=== PATIENT | male | born 1945 | race Caucasian/White ===

== ENCOUNTER 2017-01-25 06:57 | Day surgery (SDC) | payer OTHER ==
[~2017-01-25] VITALS: Ht 195.6 cm; Wt 120.5 kg
[2017-01-25] VITALS (7 sets, daily range): BP systolic 102–120; BP diastolic 65–90; PULSE 68–82; RESP 16–20; TEMP 98–98.3; O2SAT 93–94
[2017-01-25] MEDS ORDERED: SODIUM CHLORIDE 0.9% 1000 ML IV SCH (07:00)
[2017-01-25] MEDS ORDERED: APIX2.5T PO (07:18)
[2017-01-25] MEDS ORDERED: ceFAZolin 2 GM PREMIX 50 ML - implanted port/tunneled catheter insertion IV SCH (07:30)
[2017-01-25] MEDS ORDERED: CHLORHEXIDINE GLUCONATE 2 % 1 PACK (2 CLOTHS) TOPICAL SCH (07:30)
[2017-01-25] MEDS ORDERED: POVIDONE IODINE 5% (ANTISEPSIS KIT) 4 APPLICATIONS EACH NARE SCH (07:30)
[2017-01-25] MEDS ORDERED: VANCOMYCIN 1000 MG/NS 250 ML - implanted port/tunneled catheter IV SCH ×2 (07:30)
[2017-01-25] MEDS ORDERED: MIDAZOLAM HCL 5 MG/5 ML VIAL ONE (08:49)
[2017-01-25] MEDS ORDERED: fentaNYL CITRATE 250 MCG/5 ML AMP ONE (08:49)
[2017-01-25] MEDS ORDERED: LIDOCAINE 1%/EPINEPHrine 1:100,000 SOLN 30 ML VIAL ONE (08:59)
--- NOTE | 2017-01-25 09:58 | PD.RAD ---
Post Procedure Progress Note Pre Procedure Diagnosis: (1) Lymphoma Post Procedure Diagnosis: (1) Lymphoma Procedure Date: Jan 25, 2017 Supervising Radiologist: Rajan Montoya Proceduralist/Assist: Qi Dobson, RT(R)(CV), Anum Canseco RT(R) Estimated blood loss: <5 ml Anesthesia: Conscious Sedation Plan of Activity Patient to Unit: ROPU Patient Condition: Good Additional Comments: TIP at [facility] See PACS Report for procedural detail/treatment Rajan Montoya MD Jan 25, 2017 09:58
[2017-01-25] MEDS ORDERED: SODIUM CHLORIDE 0.9% FLUSH 10 ML FLUSH IVF PRN (10:00)
--- NOTE | 2017-01-25 10:17 | RADRPT ---
EXAM DATE/TIME: 01/25/2017 09:07 [facility] COMPARISON: No previous studies available for comparison. INDICATIONS : Patient with history of lymphoma in need of Fldvi-o-Bocz placement. MEDICAL HISTORY : DVT, Lymphoma, Renal cancer, Squamous cell cancer left arm, Multiple left anterior rib fractures SURGICAL HISTORY : Right knee replacement, Tonsillectomy, Left radical nephrectomy, Kidney bx, Colonoscopy, Lymph node b x, Port placement ENCOUNTER: Initial ACUITY: >1 year PAIN SCORE: 0/10 FLUORO TIME: 0.2 minutes IMAGE SERIES: 0 SEDATION TIME: 45 ACCESS: Right internal jugular vein SEDATION: 1.) 3.5 mg midazolam (Versed) IV 2.) 175 mcg fentanyl (Sublimaze) IV Prophylactic antibiotics were administered with appropriate pre-procedure timing. Vancomycin within 2 hours of procedure, Ancef (or alternative) within 1 hour of procedure. DEVICE: 1. 8 [place] single lumen Bard Power Port PROCEDURE : 1. Continuous pulse oximetry and EKG monitoring. 2. Intravenous conscious sedation. 3. Ultrasound guidance for venous access. 4. Fluoroscopic guided implantable central venous port placement. The patient was placed supine. The neck was prepped in sterile fashion. Full sterile technique was u sed, including cap, mask, sterile gloves and gown, and a large sterile sheet. Hand hygiene and 2% ch lorhexidine Betadine was utilized per protocol for cutaneous antisepsis with appropriate dry time for site. The skin and subcutaneous tissues were infiltrated with local anesthetic solution. Under direct ultrasound guidance, central venous access was accomplished in the targeted vessel. The ultrasound images depicting access guidance were stored and saved to PACS for permanent record. A s ubcutaneous pocket was created using blunt dissection. The port was introduced to the pocket. The c atheter tubing was fed through a subcutaneous tunnel to the venotomy site. The catheter tubing was c ut to a suitable length and then was introduced through a valved Peel-Away sheath and positioned with catheter tubing tip at the cavo-atrial junction level. The pocket incision was closed with subcutic ular Vicryl suture. Steri-Strips were applied. The port was flushed and locked with heparin solutio n per protocol. Sterile dressing was applied to the site. The patient tolerated the procedure well. Conscious sedation was performed with the prescribed dosages and duration as above in the presence of an independent trained radiology nurse to assist in the monitoring of the patient. EKG and oximetry remained stable throughout the procedure. The patient tolerated the procedure well and there were no complications. The patient was sent to post anesthesia recovery in stable condition. CONCLUSION: Uncomplicated ultrasound and fluoroscopic guided implanted central venous port catheter placement as described in detail above. An 8 Naur[place] Power port was placed. Rajan Montoya MD on January 25, 2017 at 10:15 Board Certified Radiologist. This report was verified electronically.
== END 2017-01-25 12:10 | disposition home or self-care (01) ==
LOC: HROP 06:57 → HRIP 07:05 → HROP 12:10
PROVIDERS: ATTEND Internal Medicine Hematology & Oncology
DX: C85.90 Non-Hodgkin lymphoma, unspecified, unspecified site (principal)
CPT/HCPCS: 36561; 76937; 77001; 99152; 99153; C1788; J0690; J1642; J2250; J3010; J3370; J7030; J7050

== ENCOUNTER → 2017-06-08 | Outpatient (CLI) | payer OTHER ==
[~2017-06-08] MED LIST: APIX2.5T PO
[2017-06-08 10:16] LABS: AUTOMATED NEUTROPHIL # 0.5 TH/MM3 (1.8-7.7); BASOPHIL % 0.3 % (0.0-2.0); EOSINOPHIL % 2.5 % (0.0-4.0); HEMATOCRIT 35.7 % (39.0-51.0); HEMO FLAGS AUTO DIFF; LYMPH % 44.8 % (9.0-44.0); LYMPHOCYTE # 0.8 TH/MM3 (1.0-4.8); MEAN CELL VOLUME 96.8 FL (80.0-100.0); MEAN CORPUSCULAR HEMOGLOBIN 33.8 PG (27.0-34.0); MEAN CORPUSCULAR HGB CONC 34.9 % (32.0-36.0); MONO % 22.9 % (0.0-8.0); NEUT % 29.5 % (16.0-70.0); PLATELET COUNT 23 TH/MM3 (150-450); RED BLOOD COUNT 3.69 MIL/MM3 (4.50-5.90); RED CELL DISTRIBUTION WIDTH 13.2 % (11.6-17.2); WHITE BLOOD COUNT 1.8 TH/MM3 (4.0-11.0)
[2017-06-08 10:43] LABS: BANDS 9 % (0-6); EOSINOPHILS 1 % (0-4); METAMYELOCYTES 2 % (0-1); NEUTROPHIL # MANUAL DIFF 0.3 TH/MM3 (1.8-7.7); POLYS (SEG NEUTROPHILS) 6 % (16-70); WBC DIFF SAMPLE 100
[2017-06-08 10:44] LABS: PLATELET ESTIMATE SMEAR LOW (NORMAL); PLATELET MORPHOLOGY NORMAL (NORMAL); SCAN/DIFF FINAL DIFF MANUAL
== END ==
LOC: HLAB 09:24
PROVIDERS: ATTEND Internal Medicine Hematology & Oncology
DX: C85.90 Non-Hodgkin lymphoma, unspecified, unspecified site (principal)
CPT/HCPCS: 85007; 85027

== ENCOUNTER 2017-12-21 00:20 | Inpatient (IN) | payer OTHER, MEDICARE ==
[2017-12-21] VITALS (10 sets, daily range): BP systolic 91–124; BP diastolic 56–80; PULSE 75–121; RESP 16–18; TEMP 97.5–101.7; O2SAT 94–98
[~2017-12-21] VITALS: Ht 190.5 cm; Wt 97.0 kg
--- NOTE | 2017-12-21 01:17 | RADRPT ---
EXAM DATE/TIME: 12/21/2017 00:48 [facility] COMPARISON: No previous studies available for comparison. INDICATIONS : Shortness of breath MEDICAL HISTORY : DVT, Lymphoma, Renal cancer, Squamous cell cancer left arm SURGICAL HISTORY : None. ENCOUNTER: Initial ACUITY: 1 day PAIN SCORE: 0/10 LOCATION: Bilateral chest FINDINGS: Right chest port catheter is present in good position. There is no evidence of focal infiltrate or pl eural effusion. Cardiac contours are satisfactory for technique and projection. CONCLUSION: No acute disease Chaitanya York MD on December 21, 2017 at 1:15 Board Certified Radiologist. This report was verified electronically.
[2017-12-21] MEDS ORDERED: ACYC800T PO (01:27)
[2017-12-21] MEDS ORDERED: POTA10TA2 PO (01:27)
[2017-12-21] MEDS ORDERED: CYCL1CAP4 PO (01:27)
[2017-12-21] MEDS ORDERED: SENN8.6T36 PO (01:27)
[2017-12-21] MEDS ORDERED: RANI300T PO (01:27)
[2017-12-21 01:31] LABS: HEMATOCRIT 27.6 % (39.0-51.0); HEMOGLOBIN 9.5 GM/DL (13.0-17.0); MEAN CELL VOLUME 97.9 FL (80.0-100.0); MEAN CORPUSCULAR HEMOGLOBIN 33.6 PG (27.0-34.0); MEAN CORPUSCULAR HGB CONC 34.3 % (32.0-36.0); PLATELET COUNT 38 TH/MM3 (150-450); RED BLOOD COUNT 2.82 MIL/MM3 (4.50-5.90); RED CELL DISTRIBUTION WIDTH 24.4 % (11.6-17.2); WHITE BLOOD COUNT 3.4 TH/MM3 (4.0-11.0)
[2017-12-21] MEDS ORDERED: FLUT50SP EACH NARE (01:31)
[2017-12-21] MEDS ORDERED: LACT10SO PO (01:31)
[2017-12-21] MEDS ORDERED: CETI5CHW CHEW (01:31)
[2017-12-21 01:54] LABS: ALBUMIN 3.5 GM/DL (3.4-5.0); ALT (GPT) 27 U/L (12-78); AST (GOT) 22 U/L (15-37); BLOOD UREA NITROGEN 10 MG/DL (7-18); CALCIUM 8.6 MG/DL (8.5-10.1); CHLORIDE 102 MEQ/L (98-107); CREATININE 1.64 MG/DL (0.60-1.30); GLOMERULAR FILTRATION RATE 41 ML/MIN (>89); GLUCOSE,RANDOM 134 MG/DL (74-106); SODIUM (NA) 137 MEQ/L (136-145)
[2017-12-21 01:56] LABS: ALKALINE PHOSPHATASE 58 U/L (45-117); TOTAL BILIRUBIN ADULT 0.5 MG/DL (0.2-1.0); TOTAL PROTEIN 6.5 GM/DL (6.4-8.2)
[2017-12-21 02:01] LABS: BANDS 27 % (0-6); BASOPHILS 1 % (0-2); CORRECTED NUCLEATED RBC 1 /100 WBC (0-0); LYMPHOCYTES 17 % (9-44); METAMYELOCYTES 2 % (0-1); MONOCYTES 20 % (0-8); NEUTROPHIL # MANUAL DIFF 1.9 TH/MM3 (1.8-7.7); NUCLEATED RED BLOOD CELL 1 (0-0); POLYS (SEG NEUTROPHILS) 28 % (16-70)
[2017-12-21 02:02] LABS: OVALOCYTES 1+ (NORMAL)
--- NOTE | 2017-12-21 02:12 | PD ---
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 Hall and I called Dr. Hernandez who was at covering the ice team at [facility] and he is admitted PFS Past Medical History Cancer: Yes (Lymphoma, kidney ca) Cardiovascular Problems: Yes (DVT RLE 5 yrs ago) Chemotherapy: Yes Diabetes: No Endocrine: No Genitourinary: No Hepatitis: No Hiatal Hernia: No Immune Disorder: No Medical other: Yes (Tumor removed L1, L3) Musculoskeletal: Yes (Right TKR) Neurologic: No Psychiatric: No Reproductive: No Respiratory: No Immunizations Current: Yes Thyroid Disease: No Past Surgical History Abdominal Surgery: Yes AICD: No Cardiac Surgery: No Ear Surgery: No Endocrine Surgery: Yes (KIDNEY REMOVAL) Eye Surgery: No Genitourinary Surgery: No Gynecologic Surgery: No Joint Replacement: Yes (Right TKR) Oral Surgery: No Pacemaker: No Thoracic Surgery: No Other Surgery: Yes Social History Alcohol Use: Yes Tobacco Use: No Substance Use: No Allergies-Medications (Allergen,Severity, Reaction): Coded Allergies: naproxen (Unverified Allergy, Intermediate, Hives, 12/21/17) Reported Meds & Prescriptions Reported Meds & Active Scripts Active Reported Lactulose Liq (Lactulose) 10 Gm/15 Ml Soln 45 Ml PO Q6H PRN Fluticasone Nasal [place] 50 Mcg/Act Naspr 50 Mcg EACH NARE BID 50 mcg/spray Cetirizine (Cetirizine HCl) 5 Mg Chew 5 Mg CHEW DAILY Senna-Tabs (Sennosides) 8.6 Mg Tab 17.2 Mg PO DAILY Ranitidine (Ranitidine HCl) 300 Mg Tab 300 Mg PO HS Potassium Chloride ER (Potassium Chloride) 10 Meq Tab 10 Meq PO TID Cyclophosphamide 50 Mg Cap 100 Mg PO DAILY Acyclovir 800 Mg Tab 800 Mg PO BID Eliquis (Apixaban) 2.5 Mg Tab 2.5 Mg PO BID Physical Exam Narrative GENERAL: seems mildly confused and difficulty remebering events leading up to today Rectal temp 101.7 SKIN: Warm and dry. HEAD: Atraumatic. Normocephalic. EYES: Pupils equal and round. No scleral icterus. No injection or drainage. ENT: No nasal bleeding or discharge. Mucous membranes pink and moist. NECK: Trachea midline. No JVD. CARDIOVASCULAR: Regular rate and rhythm. RESPIRATORY: No accessory muscle use. Clear to auscultation. Breath sounds equal bilaterally. GASTROINTESTINAL: Abdomen soft, non-tender, nondistended. Hepatic and splenic margins not palpable. MUSCULOSKELETAL: Extremities without clubbing, cyanosis, or edema. No obvious deformities. NEUROLOGICAL: Awake and alert. No obvious cranial nerve deficits. Motor grossly within normal limits. Five out of 5 muscle strength in the arms and legs. Normal speech. PSYCHIATRIC: seems mildly forgetful possible mild demetia or side effect of recent t-cell transplant Data Data Last Documented VS Vital Signs Date Time Temp Pulse Resp B/P (MAP) Pulse Ox O2 Delivery O2 Flow Rate FiO2 12/21/17 00:46 120 98 Room Air 12/21/17 00:41 101.7 16 124/80 (95) Orders Orders Complete Blood Count With Diff (12/21/17 00:46) Comprehensive Metabolic Panel (12/21/17 00:46) Creatine Kinase (Cpk) (12/21/17 00:46) Lipase (12/21/17 00:46) Urinalysis - C+S If Indicated (12/21/17 00:46) Chest, Single Ap (12/21/17 00:46) Lactic Acid (12/21/17 00:47) Blood Culture (12/21/17 00:47) Cefepime Inj (Maxipime Inj) (12/21/17 02:15) Consult Hematology (12/21/17 ) Influenzae A/B Antigen (12/21/17 02:10) Admit Order (Ed Use Only) (12/21/17 02:19) Labs Laboratory Tests Test 12/21/17 01:00 12/21/17 02:15 White Blood Count 3.4 TH/MM3 Red Blood Count 2.82 MIL/MM3 Hemoglobin 9.5 GM/DL Hematocrit 27.6 % Mean Corpuscular Volume 97.9 FL Mean Corpuscular Hemoglobin 33.6 PG Mean Corpuscular Hemoglobin Concent 34.3 % Red Cell Distribution Width 24.4 % Platelet Count 38 TH/MM3 Mean Platelet Volume 9.0 FL CBC Comment AUTO DIFF Differential Total Cells Counted 100 Neutrophils % (Manual) 28 % Band Neutrophils % 27 % Lymphocytes % 17 % Monocytes % 20 % Eosinophils % 5 % Basophils % 1 % Neutrophils # (Manual) 1.9 TH/MM3 Metamyelocytes 2 % Nucleated Red Blood Cells 1 /100 WBC Differential Comment FINAL DIFF MANUAL Platelet Estimate LOW Platelet Morphology Comment NORMAL Ovalocytes 1+ Blood Urea Nitrogen 10 MG/DL Creatinine 1.64 MG/DL Random Glucose 134 MG/DL Total Protein 6.5 GM/DL Albumin 3.5 GM/DL Calcium Level 8.6 MG/DL Alkaline Phosphatase 58 U/L Aspartate Amino Transf (AST/SGOT) 22 U/L Alanine Aminotransferase (ALT/SGPT) 27 U/L Total Bilirubin 0.5 MG/DL Sodium Level 137 MEQ/L Potassium Level 3.8 MEQ/L Chloride Level 102 MEQ/L Carbon Dioxide Level 23.0 MEQ/L Anion Gap 12 MEQ/L Estimat Glomerular Filtration Rate 41 ML/MIN Lactic Acid Level 2.1 mmol/L Total Creatine Kinase 59 U/L Lipase 144 U/L Urine Color Light Urine Turbidity CLEAR Urine pH 7.0 Urine Specific [place] 1.004 Urine Protein NEG mg/dL Urine Glucose (UA) NEG mg/dL Urine Ketones NEG mg/dL Urine Occult Blood TRACE Urine Nitrite NEG Urine Bilirubin NEG Urine Urobilinogen 0.2 MG/DL Urine Leukocyte Esterase NEG Urine RBC LESS THAN 1 /hpf Urine WBC 1 /hpf Urine Squamous Epithelial Cells 2 /hpf Urine Bacteria RARE /hpf Microscopic Urinalysis Comment CULT NOT INDICATED MDM Medical Decision Making Medical Screen Exam Complete: Yes Emergency Medical Condition: Yes Medical Record Reviewed: Yes Differential Diagnosis neutropenic fever, immune deficiency fever , medication reaction , viral illneess witgh fever , bacterial source fever UTI or PNA or septicemia Narrative Course pt has rectal temp of 101 .7 and is given vanco 1 gr and cefipime 2gr , discussed case with Dr Hall ONC who knows the patient and I called [facility] and spoke to sales administration specialist MD , they both agree with aggressive antibioitic treatment and admit contact isolation reverse Physician Communication Physician Communication Dr Hall and Hepsis attending Mazal Diagnosis Primary Impression: Neutropenic fever Additional Impression: Lymphoma Admitting Information Admitting Physician Requests: Admit Scripts Levofloxacin (Levaquin) 750 Mg Tablet 750 MG PO DAILY for Infection, #7 TAB 0 Refills Prov: Lucy Gallegos MD 12/23/17 Augustus Tay MD December 21, 2017 02:12
[2017-12-21] MEDS ORDERED: CEFEPIME INJ 2,000 MG in SODIUM CHLORIDE 0.9% INJ 100 ML IV ONE (02:15)
[2017-12-21] MEDS ORDERED: VANCOMYCIN INJ 1,000 MG in SODIUM CHLOR 0.9% 250 ML INJ 250 ML IV ONE (02:15)
[2017-12-21] MEDS ORDERED: SENNOSIDES 8.6 MG TAB PO PRN (02:30)
[2017-12-21] MEDS ORDERED: MAGNESIUM HYDROXIDE SUSP 30 ML CUP PO PRN (02:30)
[2017-12-21] MEDS ORDERED: ACETAMINOPHEN 325 MG TAB PO PRN (02:30)
[2017-12-21] MEDS ORDERED: ACETAMINOPHEN/HYDROcodone 325 MG/5 MG TAB PO PRN (02:30)
[2017-12-21] MEDS ORDERED: SODIUM CHLORIDE 0.9% FLUSH 10 ML FLUSH IV FLUSH PRN (02:30)
[2017-12-21] MEDS ORDERED: ONDANSETRON HCL 4 MG/2 ML VIAL IVP PRN (02:30)
[2017-12-21] MEDS ORDERED: LACTULOSE SYRUP 20 GM/30 ML CUP PO PRN (02:30)
[2017-12-21] MEDS ORDERED: Vancomycin Consult Pharmacy 1 EA OTHER SCH (02:30)
[2017-12-21] MEDS ORDERED: BISACODYL 10 MG SUPP RECTAL PRN (02:30)
[2017-12-21] MEDS ORDERED: MORPHINE SULFATE 4 MG/ML INJ IV PRN (02:45)
[2017-12-21] MEDS ORDERED: VANCOMYCIN INJ 2,500 MG in SODIUM CHLORID 0.9% 500 ML INJ 500 ML IV ONE (02:45)
[2017-12-21 03:05] LABS: BACTERIA, URINE RARE /hpf; SQUAMOUS EPITHELIAL CELL URINE 2 /hpf (0-5)
[2017-12-21 03:07] LABS: BILIRUBIN, URINE NEG (NEG); BLOOD, URINE TRACE (NEG); GLUCOSE,URINE NEG (NEG); KETONE, URINE NEG (NEG); NITRITE,URINE NEG (NEG); URINE COLOR Light (YELLW/STRAW); URINE LEUKOCYTE ESTERASE NEG (NEG)
--- NOTE | 2017-12-21 03:47 | HHI.HP ---
HPI Service [facility] Primary Care Physician Non-Staff Admission Diagnosis Neutropenic fever 101.7 Diagnoses: (1) Sepsis Diagnosis: Principal (2) Neutropenic fever Diagnosis: Principal (3) Lymphoma Diagnosis: Principal (4) Thrombocytopenia Diagnosis: [place] Travel History International Travel<30 Days: No Contact w/Intl Traveler <30 Da: No Traveled to Known Affected Are: No History of Present Illness This is a 72-year-old male with a PMH of Large B Cell Lymphoma, h/o DVT and h/o Renal Cell CA s/p Left Nephrectomy who was brought to the ER by EMS secondary to weakness and near syncope. at bedside providing history, states he recently underwent CAR T-cell treatment at [facility]-(also follows w/ Dr. Hall locally), was admitted for approx 20 days, states he tolerated the treatment fairly well except for intermittent fever, but they resolved spontaneously. states he was discharged today after CT/PET Scan and receiving Neupogen for "low blood counts". states that on their drive back home pt had sudden intense rigors/chills, she took his temp when they got home which was 98- 99. Pt had gotten up to go to the bathroom and had intense weakness w/ near syncope, she was unable to get him up at which time she called EMS. On arrival , pt w/ rectal Temp 101.7, HR 121, BP 124/80, O2 sat 98% on RA. WBC 3.4, previously 4.0 on 10/28/2017. Hemoglobin 9.5, platelets 38, bandemia of 27%. Chemistry essentially at baseline, creatinine 1.64, previously 1.67 on 2017. Lactic Acid 2.1. UA negative for UTI. CXR with no acute findings. ER physician contacted Dr. Hernandez at [facility] and Dr. Hall. S/p Blood Cultures, Vanc/Cefepime in ER. Review of Systems Except as stated in HPI: all other systems reviewed are Neg ROS: 14 point review of systems otherwise negative. Past Family Social History Past Medical History PMH: Large B Cell Lymphoma, h/o DVT and h/o Renal Cell CA s/p Left Nephrectomy Past Surgical History PAST SURGICAL HISTORY: Left Nephrectomy, Right Total Knee Replacement Allergies: Coded Allergies: naproxen (Unverified Allergy, Intermediate, Hives, 12/21/17) Family History PAST FAMILY HISTORY: Reviewed. No h/o DM or CAD Social History PAST SOCIAL HISTORY: Occasional alcohol. Negative for tobacco or drugs. Physical Exam Vital Signs Vital Signs Date Time Temp Pulse Resp B/P (MAP) Pulse Ox O2 Delivery O2 Flow Rate FiO2 12/21/17 00:46 120 98 Room Air 12/21/17 00:41 101.7 121 16 124/80 (95) 98 Physical Exam PE: GENERAL: Pleasant elderly white male in no acute distress. at bedside HEENT: PERRLA, EOMI. No scleral icterus or conjunctival pallor. No lid lag or facial droop. CARDIOVASCULAR: Regular rate and rhythm. No obvious murmurs to auscultation. No chest tenderness to palpation. Right chest port in place. RESPIRATORY: No obvious rhonchi or wheezing. Clear to auscultation. Breath sounds equal bilaterally. GASTROINTESTINAL: Abdomen soft, non-tender, nondistended. BS normal. MUSCULOSKELETAL: Extremities without clubbing, cyanosis, or edema. No obvious deformities. NEUROLOGICAL: Awake, alert and oriented x4. No focal neurologic deficits. Moving both upper and lower extremities spontaneously. Laboratory Laboratory Tests Test 12/21/17 01:00 12/21/17 02:15 White Blood Count 3.4 Red Blood Count 2.82 Hemoglobin 9.5 Hematocrit 27.6 Mean Corpuscular Volume 97.9 Mean Corpuscular Hemoglobin 33.6 Mean Corpuscular Hemoglobin Concent 34.3 Red Cell Distribution Width 24.4 Platelet Count 38 Mean Platelet Volume 9.0 CBC Comment AUTO DIFF Differential Total Cells Counted 100 Neutrophils % (Manual) 28 Band Neutrophils % 27 Lymphocytes % 17 Monocytes % 20 Eosinophils % 5 Basophils % 1 Neutrophils # (Manual) 1.9 Metamyelocytes 2 Nucleated Red Blood Cells 1 Differential Comment FINAL DIFF MANUAL Platelet Estimate LOW Platelet Morphology Comment NORMAL Ovalocytes 1+ Blood Urea Nitrogen 10 Creatinine 1.64 Random Glucose 134 Total Protein 6.5 Albumin 3.5 Calcium Level 8.6 Alkaline Phosphatase 58 Aspartate Amino Transf (AST/SGOT) 22 Alanine Aminotransferase (ALT/SGPT) 27 Total Bilirubin 0.5 Sodium Level 137 Potassium Level 3.8 Chloride Level 102 Carbon Dioxide Level 23.0 Anion Gap 12 Estimat Glomerular Filtration Rate 41 Lactic Acid Level 2.1 Total Creatine Kinase 59 Lipase 144 Urine Color Light Urine Turbidity CLEAR Urine pH 7.0 Urine Specific [place] 1.004 Urine Protein NEG Urine Glucose (UA) NEG Urine Ketones NEG Urine Occult Blood TRACE Urine Nitrite NEG Urine Bilirubin NEG Urine Urobilinogen 0.2 Urine Leukocyte Esterase NEG Urine RBC LESS THAN 1 Urine WBC 1 Urine Squamous Epithelial Cells 2 Urine Bacteria RARE Microscopic Urinalysis Comment CULT NOT INDICATED Date/Time Source Procedure Growth Status 12/21/17 01:00 Blood Peripheral Aerobic Blood Culture Pending Received 12/21/17 01:00 Blood Peripheral Anaerobic Blood Culture Pending Received 12/21/17 02:15 Nasal Aspirate Influenza Types A,B Antigen (NATA) - Final NEGATIVE FOR FLU A AND B ANTIGEN.... Complete Result Diagram: 12/21/179912/21/1799 Caprini VTE Risk Assessment Caprini VTE Risk Assessment: No/Low Risk (score <= 1) Caprini Risk Assessment Model Point Value = 1 Point Value = 2 Point Value = 3 Point Value = 5 Age 41-60 Minor surgery BMI > 25 kg/m2 Swollen legs Varicose veins or History of unexplained or recurrent spontaneous Oral contraceptives or hormone replacement Sepsis (< 1 month) Serious lung disease, including pneumonia (< 1 month) Abnormal pulmonary function Acute myocardial infarction Congestive heart failure (< 1 month) History of inflammatory bowel disease Medical patient at bed rest Age 61-74 Arthroscopic surgery Major open surgery (> 45 min) Laparoscopic surgery (> 45 min) Malignancy Confined to bed (> 72 hours) Immobilizing plaster cast Central venous access Age >= 75 History of VTE Family history of VTE Factor V Leiden Prothrombin [id number] Lupus anticoagulant Anticardiolipin antibodies Elevated serum homocysteine Heparin-induced thrombocytopenia Other congenital or acquired thrombophilia Stroke (< 1 month) Elective arthroplasty Hip, pelvis, or leg fracture Acute spinal cord injury (< 1 month) Prophylaxis Regimen Total Risk Factor Score Risk Level Prophylaxis Regimen 0-1 Low Early ambulation 2 Moderate Order ONE of the following: *Sequential Compression Device (SCD) *Heparin 5000 units SQ BID 3-4 Higher Order ONE of the following medications: *Heparin 5000 units SQ TID *Enoxaparin/Lovenox 40 mg SQ daily (WT < 150 kg, CrCl > 30 mL/min) *Enoxaparin/Lovenox 30 mg SQ daily (WT < 150 kg, CrCl > 10-29 mL/min) *Enoxaparin/Lovenox 30 mg SQ BID (WT < 150 kg, CrCl > 30 mL/min) AND/OR *Sequential Compression Device (SCD) 5 or more Highest Order ONE of the following medications: *Heparin 5000 units SQ TID (Preferred with Epidurals) *Enoxaparin/Lovenox 40 mg SQ daily (WT < 150 kg, CrCl > 30 mL/min) *Enoxaparin/Lovenox 30 mg SQ daily (WT < 150 kg, CrCl > 10-29 mL/min) *Enoxaparin/Lovenox 30 mg SQ BID (WT < 150 kg, CrCl > 30 mL/min) AND *Sequential Compression Device (SCD) Assessment and Plan Problem List: (1) Sepsis ICD Code: A41.9 - Sepsis, unspecified organism (2) Neutropenic fever ICD Code: D70.9 - Neutropenia, unspecified; R50.81 - Fever presenting with conditions classified elsewhere (3) Lymphoma ICD Code: C85.90 - Non-Hodgkin lymphoma, unspecified, unspecified site (4) Thrombocytopenia ICD Code: D69.6 - Thrombocytopenia, unspecified Assessment and Plan A/P: 1. Sepsis: Temp 101.7, HR 120's, WBC 3.4, significant bandemia, Source-Unclear , +immunocompromised, U/a negative for UTI, CXR w/ no acute findings, images reviewed by me. S/p Blood Cultures, Vanc/Cefepime, follow up cultures, continue IV Abx. IVF 2. Neutropenic Fever: WBC 3.4, s/p Neupogen at [facility] today prior to discharge, continue w/ IV Abx, Neutropenic Precautions. Follow up cultures as above. 3. Lymphoma: Large B-Cell Lymphoma, s/p CAR T-cell treatment at [facility], following w/ Dr. Hall locally, will consult for further evaluation/ recommendations. 4. Thrombocytopenia: Platelets 38, previously 34 from outpatient labs per , no active bleeding noted, monitor closely, repeat labs in am. 5. DVT Prophylaxis: Pharmacologic contraindication secondary to thrombocytopenia 6. Social work for d/c planning as needed. 7. Case discussed w/ ER physician at length, labs/records/imaging reviewed by me. Physician Certification 2 Midnight Certification Type: Admission for Inpatient Services Order for Inpatient Services The services are ordered in accordance with Medicare regulations or non- Medicare payer requirements, as applicable. In the case of services not specified as inpatient-only, they are appropriately provided as inpatient services in accordance with the 2-midnight benchmark. Estimated LOS (days): 2 days is the estimated time the patient will need to remain in the hospital, assuming treatment plan goals are met and no additional complications. Post-Hospital Plan: Not yet determined Breanna Mcdaniel MD December 21, 2017 03:47
[2017-12-21] MEDS: SODIUM CHLOR 0.9% 1000 ML INJ 1,000 ML IV SCH ×2 (03:58→17:30)
[2017-12-21] MEDS: DOCUSATE SODIUM 50 MG/SENNA 8.6 MG TAB PO SCH ×2 (11:10→21:00)
[2017-12-21] MEDS: ACYCLOVIR 800 MG TAB PO SCH ×2 (11:10→21:50)
--- NOTE | 2017-12-21 12:09 | MB ---
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 PATIENT PROFILE: The patient is a 72-year-old white male. He is . He has lived in [place] since 06/2014. This is his third marriage. He has no biologic children. He is retired. He did bridge construction and senior project architect. He stopped smoking 33 years ago and had smoked 2-1/2 packs of cigarettes per day for 15 years. Alcohol intake in the past has been minimal. When he was well, he enjoyed golf and going to the gym. HISTORY OF PRESENT ILLNESS: The patient is a 72-year-old male whose history dates back to 2003, when he developed a large cell lymphoma and was treated with R-CHOP chemotherapy and entered a remission. He relapsed in 2004 with a low grade lymphoma and received multiple treatments and did well for a number of years. He developed large cell lymphoma for the second time, documented in 06/2017, felt to be a transformation of his low grade lymphoma. He received chemotherapy following this with carboplatin, ifosfamide and RN DIALYSIS-16. This was not successful. I referred him to the [facility] for CAR T-cell treatment. He was given a CAR T-cell infusion 4 weeks ago. His treatment was for the most part uneventful. He did not have a cytokine release phenomenon. Yesterday, he was at the [facility] and had a CAT scan and PET scan performed and returned home for the first time after being in [place] for the past month. On returning home, he developed global weakness and slid down to the floor. He had a 101 temperature and his called 911 and brought him to the emergency room. When he arrived at the emergency room, his temperature was 101.7, pulse was 121, respiratory rate 16, blood pressure 124/80 and O2 saturation was 98%. I was contacted that evening. His CBC- hemoglobin 9.5,;white count 2400; and platelets 38,000. He had 28% neutrophils, 27% bands, 17% lymphocytes, 20% monocytes, 5% eosinophils, 2 metamyelocytes and 1 nucleated red cell. A chest x-ray shows a right-sided chest port-catheter in good position. There are no infiltrates. He has been started on antibiotics and was given cefepime 1000 mg IV q.12 hours and his acyclovir 800 mg p.o. b.i.d. was continued. He is feeling better this morning. He has no fever. He received one injection of \ Vancomyin PAST SURGICAL HISTORY: 1. Right knee replacement. 2. Squamous cell carcinoma, left arm. 3. Tonsillectomy. 4. Left radical nephrectomy in 2013 for a renal cell cancer. 5. Colonoscopy in 2011. 6. Biopsy of lymph node in the right inguinal area in 2003, revealing diffuse large cell lymphoma. 7. Port placement in 2003. 8. Biopsy of axillary lymph node showing large cell lymphoma. PAST MEDICAL HISTORY: 1. Both large and small cell lymphoma. 2. Four weeks ago he received an infusion of CAR T-cells. 3. History of deep vein thrombosis right leg in 2004, occurring during chemotherapy and second DVT in 02/2014. MEDICATIONS PRIOR TO ADMISSION: 1. Eliquis 2.5 mg twice a day if the platelets are greater than 50,000. 2. Acyclovir 800 p.o. b.i.d. 3. Potassium 10 mEq once a day. 4. Zantac 300 mg a day. 5. Senna S. 6. Zyrtec. 7. Lactulose. ALLERGIES: NAPROXEN. FAMILY HISTORY: Noncontributory. REVIEW OF SYSTEMS: HEENT: No change in vision. Hearing slightly decreased this past week. CARDIOVASCULAR: No chest pain or palpitations. RESPIRATORY: Several days ago he had mild shortness of breath, went to the clinic at [facility], was given IV fluids and a Neupogen injection. He is better now. GASTROINTESTINAL: There has been a 40 pound weight loss over the past 6 months with diminished appetite. GENITOURINARY: No dysuria or frequency. MUSCULOSKELETAL: Lower back pain, chronic. NEUROLOGIC: General weakness during the past several days, exacerbated by the fever. SKIN: Normal. PSYCHIATRIC: Normal. PHYSICAL EXAMINATION: GENERAL: Reveals a gentleman who appears tired, but not acutely ill. VITAL SIGNS: His current temperature is 98.7, pulse 90, respiratory rate 18, blood pressure 105/65, O2 saturation 94%. HEENT: Head is normocephalic. Sclerae and conjunctivae are normal. Oropharynx unremarkable. LYMPHATICS: No cervical, supraclavicular, axillary or inguinal adenopathy. HEART: Regular rate and rhythm. LUNGS: Clear. ABDOMEN: Soft. No hepatosplenomegaly or masses. EXTREMITIES: No edema. MUSCULOSKELETAL: No bone pain. NEUROLOGIC: No weakness. Cognition and affect normal. SKIN: Unremarkable. The patient has catheter right upper chest area. ASSESSMENT AND PLAN: 1. Fever. For the time being, we must assume that this is related to an infection. He is immune suppressed, although his neutrophil count is adequate at 1900. Plan: Would continue cefepime. Await blood cultures. The [facility] has indicated that if the neutrophil count is less than 750, the recommendation is to give him Neupogen 480 units. 2. Large cell lymphoma. On exam, he appears to be in remission. He had a CAT scan and a PET scan done at [facility] yesterday and the patient and will obtain the results next week. Currently, would continue IV antibiotics and hopefully cultures will be negative and he will be able to go home in several days. Would also continue the oral acyclovir. Will check CBC and platelet count daily in case he needs Neupogen as his neutrophil count may continue to fall due due to his previous CAR T-cell infusion as one can have prolonged cytopenias. MD DELFIN Garay/EDENILSON , 11:32 AM , 12:08 PM [id number]
--- NOTE | 2017-12-21 13:51 | EKG ---
Date Performed: 12/21/2017 Time Performed: 00:35:50 PTAGE: 72 years EKG: SINUS TACHYCARDIA ABNORMAL RHYTHM ECG PREVIOUS TRACING : 06/28/2017 12.40 Since the previous tracing, no significant change noted DOCTOR: Leonidas Perales Interpretating Date/Time 12/21/2017 13:50:43
[2017-12-21] MEDS: SODIUM CHLORIDE 0.9% FLUSH 10 ML FLUSH IV FLUSH SCH ×2 (14:55→21:50)
[2017-12-21] MEDS: CEFEPIME INJ 1,000 MG in SODIUM CHLORIDE 0.9% INJ 100 ML IV SCH ×2 (14:55→23:53)
[2017-12-22] VITALS (10 sets, daily range): BP systolic 95–116; BP diastolic 60–74; PULSE 72–98; RESP 16–20; TEMP 97.8–98.7; O2SAT 94–98
[2017-12-22] MEDS: SODIUM CHLOR 0.9% 1000 ML INJ 1,000 ML IV SCH ×2 (03:43→18:25)
[2017-12-22 06:20] LABS: HEMATOCRIT 23.4 % (39.0-51.0); HEMOGLOBIN 7.9 GM/DL (13.0-17.0); MEAN CELL VOLUME 98.8 FL (80.0-100.0); MEAN CORPUSCULAR HEMOGLOBIN 33.5 PG (27.0-34.0); MEAN CORPUSCULAR HGB CONC 33.9 % (32.0-36.0); MEAN PLATELET VOLUME 8.8 FL (7.0-11.0); PLATELET COUNT 26 TH/MM3 (150-450); RED BLOOD COUNT 2.36 MIL/MM3 (4.50-5.90); RED CELL DISTRIBUTION WIDTH 25.4 % (11.6-17.2); WHITE BLOOD COUNT 1.7 TH/MM3 (4.0-11.0)
[2017-12-22 06:50] LABS: ALBUMIN 2.9 GM/DL (3.4-5.0); ALKALINE PHOSPHATASE 45 U/L (45-117); ALT (GPT) 22 U/L (12-78); AST (GOT) 16 U/L (15-37); BICARBONATE 23.5 MEQ/L (21.0-32.0); BLOOD UREA NITROGEN 10 MG/DL (7-18); CALCIUM 8.3 MG/DL (8.5-10.1); CHLORIDE 110 MEQ/L (98-107); GLOMERULAR FILTRATION RATE 54 ML/MIN (>89); GLUCOSE,RANDOM 88 MG/DL (74-106); RANDOM VANCOMYCIN 11.3 COMMENT; SODIUM (NA) 142 MEQ/L (136-145); TOTAL BILIRUBIN ADULT 0.3 MG/DL (0.2-1.0); TOTAL PROTEIN 5.5 GM/DL (6.4-8.2)
[2017-12-22 08:10] LABS: BANDS 20 % (0-6); BASOPHILS 1 % (0-2); DOHLE BODIES PRESENT (NONE SEEN); LYMPHOCYTES 26 % (9-44); METAMYELOCYTES 8 % (0-1); MONOCYTES 16 % (0-8); MYELOCYTES 2 % (0-0); NEUTROPHIL # MANUAL DIFF 0.9 TH/MM3 (1.8-7.7); POLYS (SEG NEUTROPHILS) 22 % (16-70)
[2017-12-22 08:11] LABS: OVALOCYTES 1+ (NORMAL)
--- NOTE | 2017-12-22 08:18 | HHI.PR ---
Subjective Remarks He is in bed at this time feels a little bit better. He wants to go home as soon as possible. No nausea vomiting, constipation. No fever overnight or chills. Objective Vitals Vital Signs Date Time Temp Pulse Resp B/P (MAP) Pulse Ox O2 Delivery O2 Flow Rate FiO2 12/22/17 04:00 98.6 78 20 98/65 (76) 94 12/22/17 04:00 72 12/22/17 00:00 98.3 79 20 102/66 (78) 95 12/22/17 00:00 83 12/21/17 20:00 79 12/21/17 20:00 98.9 75 18 95/67 (76) 94 12/21/17 16:20 75 12/21/17 16:00 97.5 80 18 93/56 (68) 97 12/21/17 14:00 98.4 84 18 91/64 (73) 95 12/21/17 12:20 119 12/21/17 08:20 93 I/O 12/21/17 12/21/17 12/21/17 12/22/17 12/22/17 12/22/17 07:00 15:00 23:00 07:00 15:00 23:00 Intake Total 440 ml 1600 ml 240 ml Balance 440 ml 1600 ml 240 ml Intake Oral 240 ml 1500 ml 240 ml IV Total 200 ml 100 ml # Voids 1 4 4 Result Diagram: 12/22/17 0530 12/22/17 0530 Imaging Last Impressions Chest X-Ray 12/21/17 0046 Signed Impressions: Service Date/Time: Thursday, December 21, 2017 00:48 - CONCLUSION: No acute disease Chaitanya York MD Objective Remarks GENERAL: Pleasant elderly white male, chronically ill, in no acute distress. HEENT: PERRLA, EOMI. CARDIOVASCULAR: Regular rate and rhythm. No obvious murmurs to auscultation. No chest tenderness to palpation. Right chest port in place. RESPIRATORY: No obvious rhonchi or wheezing. Clear to auscultation. Breath sounds equal bilaterally. GASTROINTESTINAL: Abdomen soft, non-tender, nondistended. BS normal. MUSCULOSKELETAL: Extremities without clubbing, cyanosis, or edema. No obvious deformities. NEUROLOGICAL: Awake, alert and oriented x4. No focal neurologic deficits. Moving both upper and lower extremities spontaneously. A/P Problem List: (1) Sepsis ICD Code: A41.9 - Sepsis, unspecified organism (2) Neutropenic fever ICD Code: D70.9 - Neutropenia, unspecified; R50.81 - Fever presenting with conditions classified elsewhere (3) Lymphoma ICD Code: C85.90 - Non-Hodgkin lymphoma, unspecified, unspecified site (4) Thrombocytopenia ICD Code: D69.6 - Thrombocytopenia, unspecified Assessment and Plan Sepsis on admission in immunocompromised patient with Temp 101.7, HR 120's, WBC 3.4, significant bandemia, Source-Unclear Patient is immunocompromised U/a negative for UTI CXR reviewed no acute findings, Monitor Blood Cultures Continue Vanc/Cefepime, follow up cultures, continue IV Abx. Neutropenic Fever: WBC 3.4 on admission, s/p Neupogen at [facility] today prior to discharge, continue w/ IV Abx, Neutropenic Precautions. Follow up cultures as above. Large B-Cell Lymphoma, s/p CAR T-cell treatment at [facility], following w/ Dr. Hall locally, will consult for further evaluation/recommendations. Thrombocytopenia: Platelets 38, previously 34 from outpatient labs per , no active bleeding noted, monitor closely, repeat labs in am. DVT Prophylaxis: Pharmacologic contraindication secondary to thrombocytopenia Case management consulted for d/c planning . Lucy Gallegos MD December 22, 2017 08:18
[2017-12-22] MEDS: ACYCLOVIR 800 MG TAB PO SCH ×2 (08:25→23:15)
[2017-12-22] MEDS: SODIUM CHLORIDE 0.9% FLUSH 10 ML FLUSH IV FLUSH SCH ×2 (08:25→23:16)
[2017-12-22] MEDS: DOCUSATE SODIUM 50 MG/SENNA 8.6 MG TAB PO SCH ×2 (08:25→23:15)
[2017-12-22] MEDS ORDERED: VANCOMYCIN INJ 2,000 MG in SODIUM CHLORID 0.9% 500 ML INJ 500 ML IV ONE (11:00)
--- NOTE | 2017-12-22 11:07 | PD.ONC.PN ---
Subjective Subjective Remarks Afebrile Patient reports he is anxious to go home Has been walking around his room to the bathroom with no complaints Objective Data Date Time Temp Pulse Resp B/P (MAP) Pulse Ox O2 Delivery O2 Flow Rate FiO2 12/22/17 04:00 98.6 78 20 98/65 (76) 94 12/22/17 04:00 72 12/22/17 00:00 98.3 79 20 102/66 (78) 95 12/22/17 00:00 83 12/21/17 20:00 79 12/21/17 20:00 98.9 75 18 95/67 (76) 94 12/21/17 16:20 75 12/21/17 16:00 97.5 80 18 93/56 (68) 97 12/21/17 14:00 98.4 84 18 91/64 (73) 95 12/21/17 12:20 119 12/22/17 12/22/17 12/22/17 07:00 15:00 23:00 Intake Total 240 ml Balance 240 ml Result Diagram: 12/22/17 0530 12/22/17 0530 Laboratory Results Laboratory Tests Test 12/22/17 05:30 White Blood Count 1.7 TH/MM3 Red Blood Count 2.36 MIL/MM3 Hemoglobin 7.9 GM/DL Hematocrit 23.4 % Mean Corpuscular Volume 98.8 FL Mean Corpuscular Hemoglobin 33.5 PG Mean Corpuscular Hemoglobin Concent 33.9 % Red Cell Distribution Width 25.4 % Platelet Count 26 TH/MM3 Mean Platelet Volume 8.8 FL CBC Comment AUTO DIFF Differential Total Cells Counted 100 Neutrophils % (Manual) 22 % Band Neutrophils % 20 % Lymphocytes % 26 % Monocytes % 16 % Eosinophils % 5 % Basophils % 1 % Neutrophils # (Manual) 0.9 TH/MM3 Metamyelocytes 8 % Myelocytes 2 % Differential Comment FINAL DIFF MANUAL Dohle Bodies PRESENT Platelet Estimate LOW Platelet Morphology Comment NORMAL Ovalocytes 1+ Blood Urea Nitrogen 10 MG/DL Creatinine 1.30 MG/DL Random Glucose 88 MG/DL Total Protein 5.5 GM/DL Albumin 2.9 GM/DL Calcium Level 8.3 MG/DL Alkaline Phosphatase 45 U/L Aspartate Amino Transf (AST/SGOT) 16 U/L Alanine Aminotransferase (ALT/SGPT) 22 U/L Total Bilirubin 0.3 MG/DL Sodium Level 142 MEQ/L Potassium Level 3.8 MEQ/L Chloride Level 110 MEQ/L Carbon Dioxide Level 23.5 MEQ/L Anion Gap 9 MEQ/L Estimat Glomerular Filtration Rate 54 ML/MIN Random Vancomycin Level 11.3 COMMENT Culture Results Microbiology Date/Time Source Procedure Growth Status 12/21/17 01:00 Blood Peripheral Aerobic Blood Culture Pending Received 12/21/17 01:00 Blood Peripheral Anaerobic Blood Culture Pending Received 12/21/17 00:55 Blood Peripheral Aerobic Blood Culture Pending Received 12/21/17 00:55 Blood Peripheral Anaerobic Blood Culture Pending Received 12/21/17 02:15 Nasal Aspirate Influenza Types A,B Antigen (NATA) - Final NEGATIVE FOR FLU A AND B ANTIGEN.... Complete Administered Medications Medications (Trade) Dose Ordered Sig/Guzman Route PRN Reason Start Time Stop Time Status Last Admin Dose Admin Cefepime HCl 1000 mg/Sodium Chloride 100 ml @ 200 mls/hr Q12H IV 12/21/17 12:00 12/21/17 23:53 Sodium Chloride 1,000 ml @ 100 mls/hr Q10H IV 12/21/17 02:19 12/22/17 03:43 Sodium Chloride (NS Flush) 2 ml BID IV FLUSH 12/21/17 09:00 12/22/17 08:25 Ondansetron HCl (Zofran Inj) 4 mg Q6H PRN IVP NAUSEA OR VOMITING 12/21/17 02:30 12/21/17 03:57 Senna/Docusate Sodium (Katherine-Colace) 1 tab BID PO 12/21/17 09:00 12/22/17 08:25 Acyclovir (Zovirax) 800 mg BID PO 12/21/17 09:00 12/22/17 08:25 Objective Remarks GENERAL: Older gentleman resting in bed in no obvious distress SKIN: Warm and dry. HEAD: Normocephalic. EYES: No injection or drainage. NECK: Supple, trachea midline. CARDIOVASCULAR: Regular rate and rhythm without murmurs. RESPIRATORY: Clear anteriorly. Breathing unlabored at rest. GASTROINTESTINAL: Abdomen soft, non-tender, nondistended. EXTREMITIES: No cyanosis, or edema. MUSCULOSKELETAL: Adequate muscle tone. NEUROLOGICAL: No obvious focal deficit. Awake, alert, and oriented x3. Assessment/Plan Assessment 72-year-old man who recently had CAR-T cell treatment admitted with fever Plan The patient remains afebrile. He is neutropenic today with a neutrophil count of 900 however we will hold off on the G-CSF support at this time as per [facility] this is not to be initiated until he falls less than 750. Continue to follow blood cultures. Attending Statement The exam, history, and the medical decision-making described in the above note were completed with the assistance of the mid-level provider. I reviewed and agree with the findings presented. I attest that I had a [id number] encounter with the patient on the same day, and personally performed and documented my assessment and findings in the medical record. feels well and would like to go home. no fever and cultures to date are negative. Will plan on discharge home tomorrow if afebrile and cultures remain negative. He has had a significant fall in the wbc, hemoglobin and platelets. if neutrophils are < or = to 750 will give neupogen 400 units subcut times one. No platelet transfusion unless 10,000 or less or bleeding. May need transfusion of packed cells. await am CBC plat in am. Leeanne Trevizo December 22, 2017 11:07 Justice Hall MD December 22, 2017 16:26
[2017-12-22] MEDS: CEFEPIME INJ 1,000 MG in SODIUM CHLORIDE 0.9% INJ 100 ML IV SCH ×2 (15:15→23:16)
[2017-12-23] VITALS: PULSE 74
[2017-12-23 04:13] VITALS: PULSE 99
[2017-12-23 05:14] VITALS: BP 101/72; PULSE 80; RESP 16; TEMP 97.7; O2SAT 95
[2017-12-23] MEDS: SODIUM CHLOR 0.9% 1000 ML INJ 1,000 ML IV SCH (05:14)
[2017-12-23 07:42] LABS: AUTOMATED NEUTROPHIL # 0.5 TH/MM3 (1.8-7.7); EOSINOPHIL # 0.1 TH/MM3 (0-0.4); EOSINOPHIL % 7.1 % (0.0-4.0); HEMATOCRIT 24.8 % (39.0-51.0); HEMOGLOBIN 8.5 GM/DL (13.0-17.0); LYMPH % 22.9 % (9.0-44.0); LYMPHOCYTE # 0.3 TH/MM3 (1.0-4.8); MEAN CELL VOLUME 98.7 FL (80.0-100.0); MEAN CORPUSCULAR HEMOGLOBIN 33.8 PG (27.0-34.0); MEAN CORPUSCULAR HGB CONC 34.2 % (32.0-36.0); MEAN PLATELET VOLUME 8.6 FL (7.0-11.0); MONOCYTE # 0.5 TH/MM3 (0-0.9); PLATELET COUNT 27 TH/MM3 (150-450); RED BLOOD COUNT 2.51 MIL/MM3 (4.50-5.90); RED CELL DISTRIBUTION WIDTH 24.8 % (11.6-17.2); WHITE BLOOD COUNT 1.4 TH/MM3 (4.0-11.0)
--- NOTE | 2017-12-23 08:20 | HHI.PR ---
Subjective Remarks Patient in nad. She feels much better and he wants to go home today. No fever chills. Has some cough white greenish sputum says this is at his baseline. Denies having any nausea vomiting no diarrhea or constipation. Objective Vitals Vital Signs Date Time Temp Pulse Resp B/P (MAP) Pulse Ox O2 Delivery O2 Flow Rate FiO2 12/23/17 05:14 97.7 80 16 101/72 (82) 95 12/23/17 04:13 99 12/23/17 00:00 74 12/22/17 23:14 98.7 98 16 116/74 (88) 94 12/22/17 20:00 80 12/22/17 18:20 98.3 82 18 102/60 (74) 98 12/22/17 16:58 81 12/22/17 12:30 97.8 79 18 106/65 (79) 97 12/22/17 12:20 84 12/22/17 08:20 80 I/O 12/22/17 12/22/17 12/22/17 12/23/17 12/23/17 12/23/17 07:00 15:00 23:00 07:00 15:00 23:00 Intake Total 240 ml 517 ml 2635 ml 680 ml Balance 240 ml 517 ml 2635 ml 680 ml Intake Oral 240 ml 1560 ml 480 ml IV Total 517 ml 1075 ml 200 ml # Voids 4 8 4 Result Diagram: 12/23/17 0714 12/22/17 0530 Imaging Last Impressions Chest X-Ray 12/21/17 0046 Signed Impressions: Service Date/Time: Thursday, December 21, 2017 00:48 - CONCLUSION: No acute disease Chaitanya York MD Objective Remarks GENERAL: Pleasant elderly white male, chronically ill, in no acute distress. HEENT: PERRLA, EOMI. CARDIOVASCULAR: Regular rate and rhythm. No obvious murmurs to auscultation. No chest tenderness to palpation. Right chest port in place. RESPIRATORY: No obvious rhonchi or wheezing. Clear to auscultation. Breath sounds equal bilaterally. GASTROINTESTINAL: Abdomen soft, non-tender, nondistended. BS normal. MUSCULOSKELETAL: Extremities without clubbing, cyanosis, or edema. No obvious deformities. NEUROLOGICAL: Awake, alert and oriented x4. No focal neurologic deficits. Moving both upper and lower extremities spontaneously. A/P Problem List: (1) Sepsis ICD Code: A41.9 - Sepsis, unspecified organism (2) Neutropenic fever ICD Code: D70.9 - Neutropenia, unspecified; R50.81 - Fever presenting with conditions classified elsewhere (3) Lymphoma ICD Code: C85.90 - Non-Hodgkin lymphoma, unspecified, unspecified site (4) Thrombocytopenia ICD Code: D69.6 - Thrombocytopenia, unspecified Assessment and Plan Sepsis on admission in immunocompromised patient with Temp 101.7, HR 120's, WBC 3.4, significant bandemia, Source-Unclear. Sepsis resolved. Patient is immunocompromised UA negative for UTI CXR reviewed no acute findings, Monitor Blood Cultures Continue Vanc/Cefepime, follow up cultures, continue IV Abx. Discussed withhem/ onc can give levaquin 750 mg po daily for 5-7 days at [place] Neutropenic Fever: WBC 3.4 on admission, s/p Neupogen at [facility] today prior to discharge, continue w/ IV Abx, Neutropenic Precautions. Follow up cultures as above. Large B-Cell Lymphoma, s/p CAR T-cell treatment at [facility], following w/ Dr. Hall locally, will consult for further evaluation/recommendations. Thrombocytopenia: Platelets 38, previously 34 from outpatient labs per , no active bleeding noted, monitor closely, repeat labs in am. Stable. DVT Prophylaxis: Pharmacologic contraindication secondary to thrombocytopenia Case management consulted for d/c planning . Lucy Gallegos MD December 23, 2017 08:20
--- NOTE | 2017-12-23 08:22 | HHI.DS ---
Discharge Summary Admission Date December 21, 2017 at 02:21 Discharge Date: December 23, 2017 Admitting Diagnosis Neutropenic fever 101.7 (1) Sepsis ICD Code: A41.9 - Sepsis, unspecified organism (2) Neutropenic fever ICD Code: D70.9 - Neutropenia, unspecified; R50.81 - Fever presenting with conditions classified elsewhere (3) Lymphoma ICD Code: C85.90 - Non-Hodgkin lymphoma, unspecified, unspecified site (4) Thrombocytopenia ICD Code: D69.6 - Thrombocytopenia, unspecified Procedures none Brief History - From Admission This is a 72-year-old male with a PMH of Large B Cell Lymphoma, h/o DVT and h/o Renal Cell CA s/p Left Nephrectomy who was brought to the ER by EMS secondary to weakness and near syncope. at bedside providing history, states he recently underwent CAR T-cell treatment at [facility]-(also follows w/ Dr. Hall locally), was admitted for approx 20 days, states he tolerated the treatment fairly well except for intermittent fever, but they resolved spontaneously. states he was discharged today after CT/PET Scan and receiving Neupogen for "low blood counts". states that on their drive back home pt had sudden intense rigors/chills, she took his temp when they got home which was 98- 99. Pt had gotten up to go to the bathroom and had intense weakness w/ near syncope, she was unable to get him up at which time she called EMS. On arrival , pt w/ rectal Temp 101.7, HR 121, BP 124/80, O2 sat 98% on RA. WBC 3.4, previously 4.0 on 10/28/2017. Hemoglobin 9.5, platelets 38, bandemia of 27%. Chemistry essentially at baseline, creatinine 1.64, previously 1.67 on 2017. Lactic Acid 2.1. UA negative for UTI. CXR with no acute findings. ER physician contacted Dr. Hernandez at [facility] and Dr. Hall. S/p Blood Cultures, Vanc/Cefepime in ER. CBC/BMP: 12/23/17 0714 12/22/17 0530 Significant Findings Laboratory Tests Test 12/21/17 01:00 12/21/17 02:15 12/22/17 05:30 12/23/17 07:14 White Blood Count 3.4 TH/MM3 (4.0-11.0) 1.7 TH/MM3 (4.0-11.0) 1.4 TH/MM3 (4.0-11.0) Red Blood Count 2.82 MIL/MM3 (4.50-5.90) 2.36 MIL/MM3 (4.50-5.90) 2.51 MIL/MM3 (4.50-5.90) Hemoglobin 9.5 GM/DL (13.0-17.0) 7.9 GM/DL (13.0-17.0) 8.5 GM/DL (13.0-17.0) Hematocrit 27.6 % (39.0-51.0) 23.4 % (39.0-51.0) 24.8 % (39.0-51.0) Red Cell Distribution Width 24.4 % (11.6-17.2) 25.4 % (11.6-17.2) 24.8 % (11.6-17.2) Platelet Count 38 TH/MM3 (150-450) 26 TH/MM3 (150-450) 27 TH/MM3 (150-450) Band Neutrophils % 27 % (0-6) 20 % (0-6) Monocytes % 20 % (0-8) 16 % (0-8) Eosinophils % 5 % (0-4) 5 % (0-4) Metamyelocytes 2 % (0-1) 8 % (0-1) Nucleated Red Blood Cells 1 /100 WBC (0-0) Platelet Estimate LOW (NORMAL) LOW (NORMAL) Ovalocytes 1+ (NORMAL) 1+ (NORMAL) Creatinine 1.64 MG/DL (0.60-1.30) Random Glucose 134 MG/DL (74-106) Estimat Glomerular Filtration Rate 41 ML/MIN (>89) 54 ML/MIN (>89) Lactic Acid Level 2.1 mmol/L (0.4-2.0) Urine Occult Blood TRACE (NEG) Urine Bacteria RARE /hpf (NONE) Neutrophils # (Manual) 0.9 TH/MM3 (1.8-7.7) Myelocytes 2 % (0-0) Dohle Bodies PRESENT (NONE SEEN) Total Protein 5.5 GM/DL (6.4-8.2) Albumin 2.9 GM/DL (3.4-5.0) Calcium Level 8.3 MG/DL (8.5-10.1) Chloride Level 110 MEQ/L (98-107) Monocytes (%) (Auto) 35.0 % (0.0-8.0) Eosinophils (%) (Auto) 7.1 % (0.0-4.0) Neutrophils # (Auto) 0.5 TH/MM3 (1.8-7.7) Lymphocytes # (Auto) 0.3 TH/MM3 (1.0-4.8) Imaging Last Impressions Chest X-Ray 12/21/17 0046 Signed Impressions: Service Date/Time: Saturday, December 21, 2017 00:48 - CONCLUSION: No acute disease Chaitanya York MD PE at Discharge GENERAL: Pleasant elderly white male, chronically ill, in no acute distress. HEENT: PERRLA, EOMI. CARDIOVASCULAR: Regular rate and rhythm. No obvious murmurs to auscultation. No chest tenderness to palpation. Right chest port in place. RESPIRATORY: No obvious rhonchi or wheezing. Clear to auscultation. Breath sounds equal bilaterally. GASTROINTESTINAL: Abdomen soft, non-tender, nondistended. BS normal. MUSCULOSKELETAL: Extremities without clubbing, cyanosis, or edema. No obvious deformities. NEUROLOGICAL: Awake, alert and oriented x4. No focal neurologic deficits. Moving both upper and lower extremities spontaneously. Hospital Course Sepsis on admission in immunocompromised patient with Temp 101.7, HR 120's, WBC 3.4, significant bandemia, Source-Unclear. Sepsis resolved. Patient is immunocompromised UA negative for UTI CXR reviewed no acute findings, Monitor Blood Cultures Continue Vanc/Cefepime, follow up cultures, continue IV Abx. Discussed withhem/ onc can give levaquin 750 mg po daily for 5-7 days at [place] Neutropenic Fever: WBC 3.4 on admission, s/p Neupogen at [facility] today prior to discharge, continue w/ IV Abx, Neutropenic Precautions. Follow up cultures as above. Large B-Cell Lymphoma, s/p CAR T-cell treatment at [facility], following w/ Dr. Hall locally, will consult for further evaluation/recommendations. Thrombocytopenia: Platelets 38, previously 34 from outpatient labs per , no active bleeding noted, monitor closely, repeat labs in am. Stable. DVT Prophylaxis: Pharmacologic contraindication secondary to thrombocytopenia Case management consulted for d/c planning . Patient improved significantly. Sepsis resolved. Discharged home with home health in stable condition to follow-up with PCP and consultants as outpatient. Pt Condition on Discharge: Stable Discharge Disposition: Disch w/ Home Health Serv Discharge Time: > 30 minutes Discharge Instructions DIET: Follow Instructions for: Heart Healthy Diet Activities you can perform: Regular-No Restrictions Follow up Referrals: Oncology/Hematology - 1 Week PCP Follow-up - 2-3 Days New Medications: Levofloxacin (Levaquin) 750 Mg Tablet 750 MG PO DAILY for Infection, #7 TAB 0 Refills Continued Medications: Acyclovir (Acyclovir) 800 Mg Tab 800 MG PO BID for Mgmt Viral Infection, TAB 0 Refills Apixaban (Eliquis) 2.5 Mg Tab 2.5 MG PO BID for Blood Clot Prevention, TAB 0 Refills Cetirizine (Cetirizine) 5 Mg Chew 5 MG CHEW DAILY for Allergies, TAB 0 Refills Cyclophosphamide (Cyclophosphamide) 50 Mg Cap 100 MG PO DAILY for Chemotherapy Management, CAP 0 Refills Fluticasone Nasal [place] (Fluticasone Nasal [place]) 50 Mcg/Act Naspr 50 MCG EACH NARE BID for Allergy Management, #1 BOTTLE 0 Refills 50 mcg/spray Lactulose Liq (Lactulose Liq) 10 Gm/15 Ml Soln 45 ML PO Q6H PRN for CONSTIPATION, ML 0 Refills Potassium Chloride ER (Potassium Chloride ER) 10 Meq Tab 10 MEQ PO TID for Electrolyte Replacement, #60 TAB 0 Refills Ranitidine (Ranitidine) 300 Mg Tab 300 MG PO HS for Heartburn Management, #30 TAB 0 Refills Sennosides (Senna-Tabs) 8.6 Mg Tab 17.2 MG PO DAILY for Constipation, #30 TAB 0 Refills Lucy Gallegos MD December 23, 2017 08:22
--- NOTE | 2017-12-23 08:33 | HHI.FF ---
Face to Face Verification Diagnosis: (1) Lymphoma (2) Thrombocytopenia (3) Sepsis (4) Neutropenic fever Physical Therapy Order: Evaluate and Treat Home Health Nursing Order: Medical education Signs/symptoms of disease process Medication education-adverse effect Nursing assessment with vital signs I have seen patient Justice Jain on 12/23/17. My clinical findings support the need for the requested home health care services because: Ltd mobility - disease progression I certify that my clinical findings support that this patient is homebound because: Post-op weakness Lucy Gallegos MD December 23, 2017 08:33
[2017-12-23 08:58] LABS: BANDS 2 % (0-6); BASOPHILS 2 % (0-2); DOHLE BODIES PRESENT (NONE SEEN); LYMPHOCYTES 38 % (9-44); MONOCYTES 26 % (0-8); NEUTROPHIL # MANUAL DIFF 0.4 TH/MM3 (1.8-7.7); POLYS (SEG NEUTROPHILS) 30 % (16-70)
[2017-12-23 08:59] LABS: OVALOCYTES 1+ (NORMAL); TEARDROP RBCS 1+ (NORMAL)
[2017-12-23] MEDS ORDERED: LEVA750T9 PO (09:57)
--- NOTE | 2017-12-23 10:10 | PD.ONC.PN ---
Subjective Subjective Remarks Afebrile overnight. Patient resting in bed in nad. No complaints. Wants to know when he can go home. Objective Data Date Time Temp Pulse Resp B/P (MAP) Pulse Ox O2 Delivery O2 Flow Rate FiO2 12/23/17 05:14 97.7 80 16 101/72 (82) 95 12/23/17 04:13 99 12/23/17 00:00 74 12/22/17 23:14 98.7 98 16 116/74 (88) 94 12/22/17 20:00 80 12/22/17 18:20 98.3 82 18 102/60 (74) 98 12/22/17 16:58 81 12/22/17 12:30 97.8 79 18 106/65 (79) 97 12/22/17 12:20 84 12/23/17 12/23/17 12/23/17 07:00 15:00 23:00 Intake Total 680 ml Balance 680 ml Result Diagram: 12/23/17 0714 12/22/17 0530 Laboratory Results Laboratory Tests Test 12/23/17 07:14 White Blood Count 1.4 TH/MM3 Red Blood Count 2.51 MIL/MM3 Hemoglobin 8.5 GM/DL Hematocrit 24.8 % Mean Corpuscular Volume 98.7 FL Mean Corpuscular Hemoglobin 33.8 PG Mean Corpuscular Hemoglobin Concent 34.2 % Red Cell Distribution Width 24.8 % Platelet Count 27 TH/MM3 Mean Platelet Volume 8.6 FL Neutrophils (%) (Auto) 34.0 % Lymphocytes (%) (Auto) 22.9 % Monocytes (%) (Auto) 35.0 % Eosinophils (%) (Auto) 7.1 % Basophils (%) (Auto) 1.0 % Neutrophils # (Auto) 0.5 TH/MM3 Lymphocytes # (Auto) 0.3 TH/MM3 Monocytes # (Auto) 0.5 TH/MM3 Eosinophils # (Auto) 0.1 TH/MM3 Basophils # (Auto) 0.0 TH/MM3 CBC Comment AUTO DIFF Differential Total Cells Counted 50 Neutrophils % (Manual) 30 % Band Neutrophils % 2 % Lymphocytes % 38 % Monocytes % 26 % Eosinophils % 2 % Basophils % 2 % Neutrophils # (Manual) 0.4 TH/MM3 Differential Comment FINAL DIFF MANUAL Dohle Bodies PRESENT Platelet Estimate LOW Platelet Morphology Comment NORMAL Tear Drop Cells 1+ Ovalocytes 1+ Random Vancomycin Level 14.7 COMMENT Culture Results Microbiology Date/Time Source Procedure Growth Status 12/21/17 01:00 Blood Peripheral Aerobic Blood Culture - Preliminary NO GROWTH IN 1 DAY Resulted 12/21/17 01:00 Blood Peripheral Anaerobic Blood Culture - Preliminary NO GROWTH IN 1 DAY Resulted 12/21/17 00:55 Blood Peripheral Aerobic Blood Culture - Preliminary NO GROWTH IN 1 DAY Resulted 12/21/17 00:55 Blood Peripheral Anaerobic Blood Culture - Preliminary NO GROWTH IN 1 DAY Resulted 12/21/17 02:15 Nasal Aspirate Influenza Types A,B Antigen (NATA) - Final NEGATIVE FOR FLU A AND B ANTIGEN.... Complete Administered Medications Medications (Trade) Dose Ordered Sig/Guzman Route PRN Reason Start Time Stop Time Status Last Admin Dose Admin Cefepime HCl 1000 mg/Sodium Chloride 100 ml @ 200 mls/hr Q12H IV 12/21/17 12:00 12/22/17 23:16 Sodium Chloride 1,000 ml @ 100 mls/hr Q10H IV 12/21/17 02:19 12/23/17 05:14 Sodium Chloride (NS Flush) 2 ml BID IV FLUSH 12/21/17 09:00 12/22/17 08:25 Ondansetron HCl (Zofran Inj) 4 mg Q6H PRN IVP NAUSEA OR VOMITING 12/21/17 02:30 12/21/17 03:57 Senna/Docusate Sodium (Katherine-Colace) 1 tab BID PO 12/21/17 09:00 12/22/17 23:15 Acyclovir (Zovirax) 800 mg BID PO 12/21/17 09:00 12/22/17 23:15 Objective Remarks GENERAL: Elderly male, sitting up in bed SKIN: Warm and dry. HEAD: Normocephalic. EYES: No injection or drainage. NECK: Supple, trachea midline. CARDIOVASCULAR: Regular rate and rhythm RESPIRATORY: Breath sounds equal bilaterally. No accessory muscle use. GASTROINTESTINAL: Abdomen soft, non-tender, nondistended. EXTREMITIES: No cyanosis NEUROLOGICAL: awake and alert. normal speech. 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 give Neupogen for neutrophil count of 500 today 2. oncology clear for discharge. 3. follow up in clinic in 1-2 days as directed. Ivonne Stack December 23, 2017 10:10
[2017-12-23] MEDS: ACYCLOVIR 800 MG TAB PO SCH (10:15)
[2017-12-23] MEDS: DOCUSATE SODIUM 50 MG/SENNA 8.6 MG TAB PO SCH (10:15)
[2017-12-23 10:17] VITALS: BP 117/76; PULSE 77; RESP 18; TEMP 97.6; O2SAT 98
[2017-12-23 10:52] VITALS: PULSE 77
[2017-12-23] MEDS ORDERED: VANCOMYCIN INJ 2,000 MG in SODIUM CHLORID 0.9% 500 ML INJ 500 ML IV SCH (11:00)
[2017-12-23] MEDS ORDERED: FILGRASTIM INJ 480 MCG in DEXTROSE 5% IN WATER INJ 50 ML IV ONE ×2 (12:00)
[2017-12-23] MEDS ORDERED: FILGRASTIM INJ 480 MCG in DEXTROSE 5% IN WATER INJ 50 ML IV SCH ×2 (14:00)
[2017-12-25] MEDS ORDERED: PHARMACY ORDERED LAB ONE (10:45)
== END 2017-12-23 13:01 | disposition home health service (06) | DRG 872 ==
LOC: NEPC 00:20 → NEDA 02:21 → HCIN 03:12
PROVIDERS: ADMIT Hospitalist; ATTEND Hospitalist
DX: A41.9 Sepsis, unspecified organism (principal); C83.30 Diffuse large B-cell lymphoma, unspecified site; D89.9 Disorder involving the immune mechanism, unspecified; D70.9 Neutropenia, unspecified; R50.81 Fever presenting with conditions classified elsewhere; D69.6 Thrombocytopenia, unspecified; R41.82 Altered mental status, unspecified; R55 Syncope and collapse; Z96.651 Presence of right artificial knee joint; Z86.718 Personal history of other venous thrombosis and embolism; Z90.5 Acquired absence of kidney; Z87.891 Personal history of nicotine dependence; Z79.01 Long term (current) use of anticoagulants; Z85.528 Personal history of other malignant neoplasm of kidney
CPT/HCPCS: 71045; 80053; 80202; 81001; 82550; 83605; 83690; 85007; 85027; 87040; 87804; 93005; 99285; J0692; J1442; J2405; J3370; J7030; J7040